=== PATIENT | female | born 1980 | race Caucasian/White ===

== ENCOUNTER 2024-03-24 16:29 | Emergency (ER) | payer MEDICAID ==
[~2024-03-24] VITALS: Ht 162.6 cm; Wt 100.0 kg
[2024-03-24 16:35] VITALS: O2SAT 100
[2024-03-24 18:21] LABS: CHLORIDE 107 mEq/L (98-107); POTASSIUM 3.7 mEq/L (3.5-5.1); SODIUM 140 mEq/L (136-145)
[2024-03-24 18:22] LABS: CARBON DIOXIDE 29 mEq/L (21-32)
[2024-03-24 18:23] LABS: CALCIUM 9.1 mg/dL (8.7-10.4)
[2024-03-24 18:27] LABS: CREATININE 0.7 mg/dL (0.6-1.0); GLUCOSE 82 mg/dL (70-105); UREA NITROGEN BLOOD 10 mg/dL (9-23)
[2024-03-24 18:32] LABS: TROPONIN I HIGH SENSITIVITY < 4 ng/L (3.0-34)
[2024-03-24] MEDS ORDERED: IBUP-2029 MT (19:24)
[2024-03-24] MEDS ORDERED: AMOX-494 MT (19:24)
[2024-03-24] MEDS: IBUPROFEN 600MG TABLET PO STA (19:49)
[2024-03-24] MEDS: DEXAMETHASONE 4MG/ML 1ML VIAL IM ONE (19:50)
[2024-03-24 20:04] VITALS: BP 122/67; PULSE 79; RESP 18; TEMP 98.3
== END 2024-03-24 20:07 | disposition home or self-care (01) ==
LOC: ER 16:29
DX: H66.92 Otitis media, unspecified, left ear (principal); R07.89 Other chest pain
CPT/HCPCS: 99285; 71045; 80048; 84484; 36415; 93005; 96372; J1100